=== PATIENT | female | born 2000 | race Two or more races ===

== ENCOUNTER 2020-01-24 00:28 | Emergency (ER) | payer SELFPAY ==
[~2020-01-24] VITALS: Ht 170.2 cm; Wt 113.4 kg
[2020-01-24 00:35] VITALS: BP 142/85
[2020-01-24] MEDS ORDERED: Acetaminophen 500mg (ES) tab PO ONE (00:45)
--- NOTE | 2020-01-24 02:31 | Emergency Room Report ---
History of Present Illness General Chief Complaint: Behavioral Complaint Source: Patient Present Illness HPI 20-year-old female presents ED for behavioral problem. Brought in by EMS from home. Was acting agitated and combative. Was given Versed in the field. Patient admitted to using marijuana and using LSD. States she was "tripping". States she feels very anxious. Denies SI or HI. Denies hearing voices. No other aggravating relieving factors. Denies any other associated symptoms Allergies: Coded Allergies: No Known Allergies (Unverified , 01/24/20) COVID-19 Screening Contact w/high risk pt: No Recent Travel to affected area: No Experienced COVID-19 symptoms?: No COVID-19 Testing performed GLASS FURNACE TENDER: No Patient History Past Medical History: psych hx Past Surgical History: none Pertinent Family History: none Social History: Reports: drug use; Denies: smoking, alcohol use Last Menstrual Period: 01/27 Now: No : 0 Para: 0 Immunizations: UTD Reviewed Nursing Documentation: PMH: Agreed; PSxH: Agreed Nursing Documentation-PMH History Of Psychiatric Problem: Yes - DEPRESSION Review of Systems All Other Systems: negative except mentioned in HPI Physical Exam Vital Signs Date Time Temp Pulse Resp B/P (MAP) Pulse Ox O2 Delivery O2 Flow Rate FiO2 01/24/20 00:24 98.4 89 18 142/85 (104) 98 Room Air Sp02 EP Interpretation: reviewed, normal General Appearance: no apparent distress, alert, GCS 15, non-toxic, obese Head: normocephalic, atraumatic Eyes: bilateral eye normal inspection, bilateral eye PERRL ENT: hearing grossly normal, normal pharynx, no angioedema, normal voice Neck: full range of motion, supple/symm/no masses Respiratory: chest non-tender, lungs clear, normal breath sounds, speaking full sentences Cardiovascular #1: regular rate, rhythm, no edema Cardiovascular #2: 2+ carotid (R), 2+ carotid (L), 2+ radial (R), 2+ radial (L) , 2+ dorsalis pedis (R), 2+ dorsalis pedis (L) Gastrointestinal: normal bowel sounds, non tender, soft, non-distended, no guarding, no rebound Rectal: deferred Genitourinary: normal inspection, no CVA tenderness Musculoskeletal: back normal, normal range of motion, gait/station normal, non- tender Neurologic: alert, motor strength/tone normal, oriented x3, sensory intact, responsive, speech normal Psychiatric: judgement/insight normal, memory normal, no suicidal/homicidal ideation Reflexes: 3+ bicep (R), 3+ bicep (L), 3+ tricep (R), 3+ tricep (L), 3+ knee (R) , 3+ knee (L) Skin: no rash Lymphatic: no adenopathy Medical Decision Making Diagnostic Impression: Primary Impression: Substance abuse ER Course Hospital Course 20 yo F presents with agitation after using LSD and THC Clinical course Patient placed on stretcher. Patient given Versed by EMS. Is calm and cooperative at this time. Answering questions. I see no reason for further sedation or restraints. Patient asked for food and allowed to rest. Patient noting some shoulder pain to the right shoulder. Has had this pain on and off for several years. Full range of motion noted. No acute fracture dislocation on x-ray Patient allowed to rest in now awake alert oriented x3. ambulating without difficulty. No SI or HI. Safe for discharge for close outpatient follow-up Diagnosis -substance abuse stable and discharged to home. Followup with PMD. Return to ED if symptoms recur or worsen Other X-Ray Diagnostic Results Other X-Ray Diagnostic Results : X-Ray ordered: R shoulder # of Views/Limited Vs Complete: 3 View Indication: Pain EP Interpretation: Yes Interpretation: no dislocation, no soft tissue swelling, no fractures Impression: No acute disease Electronically Signed by: Electronically signed by Hu Grant MD Last Vital Signs Date Time Temp Pulse Resp B/P (MAP) Pulse Ox O2 Delivery O2 Flow Rate FiO2 01/24/20 00:24 98.4 89 18 142/85 (104) 98 Room Air Status: improved Disposition: HOME, SELF-CARE Condition: Stable Referrals: NOT CHOSEN IPA/,REFERRING (PCP) Hu Grant MD Jan 24, 2020 02:31
[2020-01-24 03:00] VITALS: BP 135/85
[2020-01-24 05:45] VITALS: BP 128/82
--- NOTE | 2020-01-24 10:15 | Diagnostic Imaging Report ---
EXAM: X-RAY XRAY Shoulder Compl R CLINICAL HISTORY: Shoulder pain status post fall. COMPARISON: None FINDINGS: Total of 4 views of the right shoulder were obtained. Alignment is anatomic. No acute fractures seen. Subcortical lucency in the humeral head likely subchondral cyst. Joint spaces are unremarkable. Surrounding soft tissue is normal. IMPRESSION: NO ACUTE FRACTURE OR MALALIGNMENT. DEGENERATIVE SUBCHONDRAL CYST IN THE HUMERAL HEAD.
== END 2020-01-24 05:45 | disposition home or self-care (01) ==
LOC: EDBD 00:28 → EMR 00:50
DX: F19.10 Other psychoactive substance abuse, uncomplicated (principal); F12.90 Cannabis use, unspecified, uncomplicated; F16.90 Hallucinogen use, unspecified, uncomplicated; M25.511 Pain in right shoulder; F32.9 Major depressive disorder, single episode, unspecified; E66.9 Obesity, unspecified; Z68.39 Body mass index [BMI] 39.0-39.9, adult
CPT/HCPCS: 99283